=== PATIENT | male | born 1960 | race Two or more races ===

== ENCOUNTER → 2023-04-17 | Outpatient (CLI) | payer MEDICAID ==
[2023-04-17 10:01] LABS: Red Cell Distribution Width 12.8 % (11.8-14.3)
[2023-04-17 10:04] LABS: Hematocrit 44.5 % (41.0-53.0); Hemoglobin 15.5 g/dL (13.5-17.5); Mean Corpuscular Hemoglobin 36.5 pg (28.0-32.0); Mean Corpuscular Hgb Conc. 34.8 g/dL (32.0-36.0); Red Blood Cells 4.24 10^6/uL (4.5-5.90); White Blood Cell 6.2 10^3/uL (4.4-10.8)
[2023-04-17 10:07] LABS: Band Neutrophils % (manual) 0; Basophils % (manual) 0 (0.0-2.0); Blast Cells 0; Metamyelocytes % 0; Myelocytes % 0; Promyelocytes % 0; Reactive Lymphocytes 0
[2023-04-17 10:40] LABS: Alanine Aminotransferase 71 U/L (7-40); Albumin 4.6 g/dL (3.2-4.8); Alkaline Phosphatase 98 U/L (46-116); Anion Gap 5 (5-15); Aspartate Aminotransferase 72 U/L (13-40); Bilirubin, Total 0.9 mg/dL (0.2-1.0); Calcium 9.7 mg/dL (8.5-10.1); Carbon Dioxide 29 mmol/L (20-30); Chloride 106 mmol/L (98-107); Cholesterol 115 mg/dL (< 200); Glucose 104 mg/dL (74-106); HDL Cholesterol 38 mg/dL (40-59); LDL Cholesterol 66 mg/dL (< 100); Potassium 4.4 mmol/L (3.5-5.1); Sodium 140 mmol/L (136-145); Total Protein 7.2 g/dL (5.7-8.2); Triglycerides 101 mg/dL (< 150)
[2023-04-17 10:43] LABS: BUN/Creatinine Ratio 5.8 (10.0-20.0); Blood Urea Nitrogen < 5 mg/dL (9-23)
[2023-04-17 12:48] LABS: Eosinophils % (manual) 10 (0-7); Lymphocytes % (manual) 42 (10.0-50.0); Monocytes % (manual) 15 (0-12); Platelet Estimate Decreased
[2023-04-17 12:49] LABS: Macrocytosis Slight
== END | disposition home or self-care (01) ==
LOC: LAB 09:38
PROVIDERS: ATTEND Specialist
DX: E78.2 Mixed hyperlipidemia (principal); D50.0 Iron deficiency anemia secondary to blood loss (chronic); E03.9 Hypothyroidism, unspecified; E11.65 Type 2 diabetes mellitus with hyperglycemia
CPT/HCPCS: 36415; 80053; 80061; 83036; 84443; 85007; 85027

== ENCOUNTER → 2023-07-20 | Outpatient (CLI) | payer MEDICAID ==
[~2023-07-20] MED LIST: ALPR0.5T7 PO; ASPI-543 PO; CALC667C PO; CARV3.1240 PO; CETI-83 PO; CHOL20TA PO; CYAN1KIT3 INJ; DOLU1TAB6 PO; DOXY100C4 PO; FOLI-119 PO; GABA-1308 PO; LEVO75TA6 PO; METR0.757 TOP; OMEP-434 PO; ROSU10TA16 PO; TAMS0.4C36 PO; VITA-55 PO
[2023-07-20 11:18] LABS: Hematocrit 46.2 % (41.0-53.0); White Blood Cell 7.6 10^3/uL (4.4-10.8)
[2023-07-20 11:19] LABS: Hemoglobin 15.7 g/dL (13.5-17.5); Mean Corpuscular Hgb Conc. 34.1 g/dL (32.0-36.0); Mean Corpuscular Volume 105.5 fL (80.0-100.0); Red Blood Cells 4.38 10^6/uL (4.5-5.90)
[2023-07-20 11:23] LABS: Band Neutrophils % (manual) 0; Basophils % (manual) 0 (0.0-2.0); Blast Cells 0; Metamyelocytes % 0; Myelocytes % 0; Promyelocytes % 0; Reactive Lymphocytes 0
[2023-07-20 12:11] LABS: Eosinophils % (manual) 26 (0-7); Lymphocytes % (manual) 28 (10.0-50.0); Macrocytosis Slight; Monocytes % (manual) 3 (0-12); Platelet Estimate Adequate
[2023-07-20 12:21] LABS: Alanine Aminotransferase 47 U/L (7-40); Alkaline Phosphatase 106 U/L (46-116); Anion Gap 2 (5-15); BUN/Creatinine Ratio 8.9 (10.0-20.0); Blood Urea Nitrogen 8 mg/dL (9-23); Calcium 9.5 mg/dL (8.5-10.1); Carbon Dioxide 30 mmol/L (20-30); Chloride 107 mmol/L (98-107); Glucose 113 mg/dL (74-106); Potassium 4.4 mmol/L (3.5-5.1); Sodium 139 mmol/L (136-145)
[2023-07-20 12:22] LABS: Albumin 4.3 g/dL (3.2-4.8); Aspartate Aminotransferase 45 U/L (13-40); Bilirubin, Total 0.7 mg/dL (0.2-1.0); Total Protein 7.1 g/dL (5.7-8.2)
[2023-07-21 08:06] LABS: Baso (Absolute) 0.1 x10E3/uL (0.0-0.2); Basos 1 % (Not Estab.); Eos 25 % (Not Estab.); Eos (Absolute) 1.8 x10E3/uL (0.0-0.4); Hematocrit 47.3 % (37.5-51.0); Hematology Comments: Note: (.); Hemoglobin 16.3 g/dL (13.0-17.7); Lymphs 32 % (Not Estab.); Lymphs (Absolute) 2.4 x10E3/uL (0.7-3.1); MCH 36.3 pg (26.6-33.0); MCHC 34.5 g/dL (31.5-35.7); MCV 105 fL (79-97); Monocytes 7 % (Not Estab.); Monocytes (Absolute) 0.5 x10E3/uL (0.1-0.9); Neutrophils 35 % (Not Estab.); Neutrophils (Absolute) 2.6 x10E3/uL (1.4-7.0); Platelets 181 x10E3/uL (150-450); RBC 4.49 x10E6/uL (4.14-5.80); RDW 12.3 % (11.6-15.4); WBC 7.4 x10E3/uL (3.4-10.8)
[2023-07-21 12:06] LABS: % CD 4 Pos Lymph 38.5 % (30.8-58.5); % CD 8 Pos Lymph 25.7 % (12.0-35.5); Absolute CD 4 Helper 924 /uL (359-1519)
[2023-07-22 09:06] LABS: Chlamydia Trachomatis, NAA Negative (Negative); Neisseria gonorrhoeae, NAA Negative (Negative)
[2023-07-23 10:01] LABS: Hepatitis B Core Total AB Negative (Negative)
[2023-07-23 13:40] LABS: Hepatitis A Total Antibody Positive (Negative); Hepatitis B Surface Antibody Negative (Negative); Hepatitis B Surface Antigen Negative (Negative); Hepatitis C Antibody Negative (Negative)
[2023-07-24 07:08] LABS: RPR Non Reactive (Non Reactive)
== END | disposition home or self-care (01) ==
LOC: LAB 10:36
PROVIDERS: ATTEND Specialist
DX: B20 Human immunodeficiency virus [HIV] disease (principal); K74.69 Other cirrhosis of liver
CPT/HCPCS: 36415; 80053; 85007; 85027; 86360; 86592; 86704; 86706; 86708; 86803; 87340

== ENCOUNTER 2023-07-24 06:55 | Day surgery (SDC) | payer MEDICAID ==
[2023-07-20 11:10] LABS: Hematocrit 46.5 % (41.0-53.0); Hemoglobin 15.6 g/dL (13.5-17.5); Mean Corpuscular Hemoglobin 35.6 pg (28.0-32.0); Mean Corpuscular Hgb Conc. 33.7 g/dL (32.0-36.0); Mean Corpuscular Volume 105.8 fL (80.0-100.0); Red Blood Cells 4.39 10^6/uL (4.5-5.90); Red Cell Distribution Width 12.9 % (11.8-14.3); White Blood Cell 7.8 10^3/uL (4.4-10.8)
[2023-07-20 11:12] LABS: Urine Bacteria None Seen /hpf (None Seen); Urine Blood Negative /uL (Negative); Urine Clarity Clear (Clear); Urine Color Light-Yellow (Yellow); Urine Protein, UAD Negative (Negative); Urine Urobilinogen Normal (Negative); Urine WBC <1 /hpf (0 - 3)
[2023-07-20 11:17] LABS: Band Neutrophils % (manual) 0; Basophils % (manual) 0 (0.0-2.0); Blast Cells 0; Metamyelocytes % 0; Myelocytes % 0; Promyelocytes % 0; Reactive Lymphocytes 0
[2023-07-20 11:23] LABS: INR 1.09 (0.9-1.15); Partial Thromboplastin Time 27.4 SEC (24.5-34.5); Prothrombin Time 11.5 sec (9.3-11.8)
[2023-07-20 12:07] LABS: Eosinophils % (manual) 26 (0-7); Lymphocytes % (manual) 28 (10.0-50.0); Macrocytosis Slight; Monocytes % (manual) 3 (0-12); Platelet Estimate Adequate
[2023-07-20 12:48] LABS: Chloride 107 mmol/L (98-107); Potassium 4.4 mmol/L (3.5-5.1); Sodium 139 mmol/L (136-145)
[2023-07-20 12:49] LABS: Anion Gap 2 (5-15); BUN/Creatinine Ratio 8.9 (10.0-20.0); Blood Urea Nitrogen 8 mg/dL (9-23); Calcium 9.5 mg/dL (8.5-10.1); Carbon Dioxide 30 mmol/L (20-30); Glucose 113 mg/dL (74-106)
[~2023-07-24] VITALS: Ht 172.7 cm; Wt 86.2 kg
[2023-07-24] MEDS ORDERED: fentaNYL CITRATE 100 MCG/2 ML VL ONE (09:42)
[2023-07-24] MEDS ORDERED: MIDAZOLAM HCL 2MG/2ML 2ml VIAL (1mg/ml) ONE (09:42)
[2023-07-24] MEDS ORDERED: SODIUM CHL 0.9% 0 ML ONE (09:42)
[2023-07-24] MEDS ORDERED: VERAPAMIL 2.5MG/ML INJ 2ML VIAL IV ONE (09:42)
[2023-07-24] MEDS ORDERED: ANGIOMAX 250 MG VIAL IV ONE (09:42)
[2023-07-24] MEDS ORDERED: HEPARIN SODIUM (PORCINE) 5000 UNITS/ML 1ML VIAL ONE (09:42)
[2023-07-24] MEDS ORDERED: IOHEXOL 350 MG/ML 100ML IJ ONE (09:53)
[2023-07-24 10:32] VITALS: BP 141/83; PULSE 76; RESP 17; TEMP 98.4; O2SAT 97
[2023-07-24 10:45] VITALS: BP 141/91; PULSE 79; RESP 16; O2SAT 96
[2023-07-24 10:59] VITALS: BP 150/89; PULSE 77; RESP 18; O2SAT 98
[2023-07-24 11:17] VITALS: BP 145/94; PULSE 78; RESP 16; O2SAT 97
[2023-07-24 11:44] VITALS: BP 138/82; PULSE 78; RESP 17; O2SAT 99
[2023-07-24 12:26] VITALS: BP 147/84; PULSE 85; RESP 19; O2SAT 96
== END 2023-07-24 12:41 | disposition home or self-care (01) ==
LOC: CATH 06:55
PROVIDERS: ATTEND Internal Medicine Cardiovascular Disease
DX: R06.02 Shortness of breath (principal); R07.9 Chest pain, unspecified; I10 Essential (primary) hypertension; I48.91 Unspecified atrial fibrillation; K21.9 Gastro-esophageal reflux disease without esophagitis; E66.9 Obesity, unspecified; E78.5 Hyperlipidemia, unspecified; G47.33 Obstructive sleep apnea (adult) (pediatric); Z21 Asymptomatic human immunodeficiency virus [HIV] infection status; Z88.0 Allergy status to penicillin; Z79.82 Long term (current) use of aspirin; Z79.899 Other long term (current) drug therapy; Z98.890 Other specified postprocedural states; Z82.49 Family history of ischemic heart disease and other diseases of the circulatory system
CPT/HCPCS: 36415; 80048; 81001; 85007; 85027; 85610; 85730; 87086; 93458; C1769; C1894; J1644; J2250; J3010; J7030; Q9967; 99152; 99153; A4565

== ENCOUNTER → 2023-09-21 | Outpatient (CLI) | payer MEDICAID ==
[2023-09-21 10:24] LABS: Urine Bacteria None Seen /hpf (None Seen); Urine WBC None Seen /hpf (0 - 3)
[2023-09-21 10:37] LABS: Mean Corpuscular Hemoglobin 36.8 pg (28.0-32.0)
[2023-09-21 10:39] LABS: Hematocrit 44.3 % (41.0-53.0); Hemoglobin 15.7 g/dL (13.5-17.5); Mean Corpuscular Hgb Conc. 35.5 g/dL (32.0-36.0); Mean Corpuscular Volume 103.6 fL (80.0-100.0); Red Blood Cells 4.28 10^6/uL (4.5-5.90); Red Cell Distribution Width 12.7 % (11.8-14.3); White Blood Cell 7.1 10^3/uL (4.4-10.8)
[2023-09-21 10:49] LABS: Band Neutrophils % (manual) 0; Basophils % (manual) 0 (0.0-2.0); Blast Cells 0; Metamyelocytes % 0; Myelocytes % 0; Promyelocytes % 0; Reactive Lymphocytes 0
[2023-09-21 12:00] LABS: Alanine Aminotransferase 47 U/L (7-40); Albumin 4.3 g/dL (3.2-4.8); Alkaline Phosphatase 109 U/L (46-116); Anion Gap 4 (5-15); Aspartate Aminotransferase 54 U/L (13-40); BUN/Creatinine Ratio 10.5 (10.0-20.0); Blood Urea Nitrogen 10 mg/dL (9-23); Calcium 9.4 mg/dL (8.7-10.4); Carbon Dioxide 27 mmol/L (20-30); Chloride 106 mmol/L (98-107); Glucose 103 mg/dL (74-106); LDL Cholesterol 59 mg/dL (< 100); Magnesium 2.5 mg/dL (1.6-2.6); Potassium 4.6 mmol/L (3.5-5.1); Sodium 137 mmol/L (136-145); Triglycerides 134 mg/dL (< 150)
[2023-09-21 12:01] LABS: Bilirubin, Total 0.8 mg/dL (0.2-1.0); Cholesterol 103 mg/dL (< 200); HDL Cholesterol 29 mg/dL (40-59); Total Protein 6.9 g/dL (5.7-8.2)
[2023-09-21 12:17] LABS: Eosinophils % (manual) 19 (0-7); Lymphocytes % (manual) 37 (10.0-50.0); Monocytes % (manual) 6 (0-12); Platelet Estimate Adequate
[2023-09-21 12:18] LABS: Folate (Folic Acid) 33.41 ng/mL (>5.38)
[2023-09-21 12:23] LABS: Uric Acid 4.8 mg/dL (3.7-9.2)
[2023-09-21 12:36] LABS: Urine Blood Negative /uL (Negative); Urine Clarity Clear (Clear); Urine Color Light-Yellow (Yellow); Urine Protein, UAD Negative (Negative); Urine Urobilinogen Normal (Negative)
== END | disposition home or self-care (01) ==
LOC: LAB 10:08
PROVIDERS: ATTEND Internal Medicine
DX: R73.09 Other abnormal glucose (principal); R79.89 Other specified abnormal findings of blood chemistry; E61.2 Magnesium deficiency
CPT/HCPCS: 36415; 80053; 80061; 81001; 82607; 82746; 83036; 83735; 84443; 84550; 85007; 85027